=== PATIENT | male | born 1985 | race African-American/Black ===

== ENCOUNTER 2022-06-20 08:59 | Emergency (ER) | payer SELFPAY ==
[2022-06-20] MEDS ORDERED: Ondansetron ODT 4 MG TAB ONE (09:53)
[2022-06-20] MEDS ORDERED: Ketorolac Tromethamine 30 MG/ML VIAL ONE (09:53)
== END 2022-06-20 10:17 | disposition home or self-care (01) ==
LOC: MADERS 08:59
DX: G43.909 Migraine, unspecified, not intractable, without status migrainosus (principal); I10 Essential (primary) hypertension; R11.2 Nausea with vomiting, unspecified; F17.220 Nicotine dependence, chewing tobacco, uncomplicated; Z20.822 Contact with and (suspected) exposure to COVID-19
CPT/HCPCS: 96372; 99284; J1885; Q0162; U0003; U0005